=== PATIENT | female | born 1980 | race Caucasian/White ===

== ENCOUNTER 2022-07-16 09:42 | Outpatient (CLI) | payer OTHER | END 2022-07-16 10:02 | disposition home or self-care (01) | LOC: MAMO-SONO 09:42 | PROVIDERS: ATTEND Student in an Organized Health Care Education/Training Program | DX: N93.9 Abnormal uterine and vaginal bleeding, unspecified (principal); R10.2 Pelvic and perineal pain; Z12.31 Encounter for screening mammogram for malignant neoplasm of breast; N60.11 Diffuse cystic mastopathy of right breast; N60.12 Diffuse cystic mastopathy of left breast ==

== ENCOUNTER 2022-09-17 08:19 | Outpatient (CLI) | payer OTHER | END 2022-09-17 08:34 | disposition home or self-care (01) | LOC: MRI 08:19 | PROVIDERS: ATTEND Obstetrics & Gynecology | DX: N92.6 Irregular menstruation, unspecified (principal); N93.9 Abnormal uterine and vaginal bleeding, unspecified; D25.9 Leiomyoma of uterus, unspecified | CPT/HCPCS: 72197 ==